=== PATIENT | female | born 1985 | race Caucasian/White ===

== ENCOUNTER 2023-07-28 13:42 | Emergency (ER) | payer OTHER, SELFPAY ==
[2023-07-28 13:45] VITALS: BP 146/103
--- NOTE | 2023-07-28 14:31 | ED.GENMED ---
History of Present Illness
<Stephanie Shelton PA-C - Last Filed: 07/28/23 18:11>
General
Chief Complaint: Musculo-Skeletal Complaint
Source: patient
Exam Limitations: none
Time Seen by Provider: 07/28/23 14:29
Nursing documentation reviewed up to this point in time: agreed with
Travel History
Have you had any contact with someone who has COVID-19?: No
Do you have any symptoms of coronavirus? Fever > 100 degrees, chills, cough, shortness of breath, sore throat, loss of taste or smell, muscle aches, or headache?: No
History of Present Illness
History of Present Illness:
37-year-old female presenting to the emergency department today with left lateral ankle pain and right knee pain following a fall. Patient states that she was outside today taking her nieces/nephews to the park when she was walking on the driveway,
stepped on a rock, twisted her ankle, and fell onto her right side. Patient currently endorses a burning pain at the site of her right knee abrasion and also notes left ankle pain. Patient states that she was able to get up after the fall and can
walk but cannot bear weight without a lot of pain and cannot put her foot flat on the ground. Patient denies any head strike, patient is not on any blood thinners, patient denies any abdominal pain, hip pain. Patient denies any dizziness,
lightheadedness, or chest pain prior to the fall.
Past History
<Stephanie Shelton PA-C - Last Filed: 07/28/23 18:11>
Past History
ED Past Medical History: None
ED Past Surgical History: Other (T&A)
Social History
Tobacco: Non-smoker
Drug: None
Personal:
Living: with family
Employment: Employed
Family History
Family History: Other
Review of Systems
<Stephanie Shelton PA-C - Last Filed: 07/28/23 18:11>
Review of Systems
All Other Systems: ROS reviewed and negative except as documented in HPI and ROS
Phy Exam
<Stephanie Shelton PA-C - Last Filed: 07/28/23 18:11>
Physical Exam
Physical Exam:
General: Patient is well appearing and in no acute distress; non-toxic
Skin: Warm and dry. There are 2 linear abrasions over the anterior surface of the right knee. No active bleeding.
Head: Normocephalic, atraumatic
Eyes: Sclera non-icteric. EOMs intact. PERRLA.
Cardiac: Regular rate
Pulm: Normal respiratory effort
Abdomen: No abdominal tenderness
Musculoskeletal: right knee: Abrasions over the surface of the right knee. Negative Albert's testing, negative Stefano's. No knee swelling. No point tenderness. No pain with full passive range of motion of the knee. left ankle: Patient has
lateral ankle pain with varus stress and lateral ankle swelling but no instability of the ankle, negative anterior drawer.
Neuro: CN II-XII intact, no focal neurologic deficits.
Psychiatric: Appropriate mood and affect.
Course
<Stephanie Shelton PA-C - Last Filed: 07/28/23 18:11>
Orders/Labs/Results
Orders:
Orders
07/28/23 13:52
CR Ankle - Left Min 3 Views Urgent
Comment:
Reason For Exam: injury/pain
CR Knee- Right 4 Or More View* Urgent
Comment:
Reason For Exam: injury/pain
07/28/23 14:43
Ibuprofen [Motrin] 600 mg PO NOW STA
07/28/23 14:49
Ibuprofen [Motrin] 600 mg .ROUTE .STK-MED ONE
07/28/23 15:20
Air Splint Left-Treatment ONCE
Crutches-Treatment ONCE
07/28/23 15:24
Tetanus/Diphth/Acelpertussis [Adacel] 0.5 ml IM .ONCE ONE
07/28/23 15:37
boot [Ortho Boot Right- Treatment] ONCE
Short or tall?: Short
Vital Signs
Initial and Last Documented VS:
Initial Vital Signs
Temp Pulse Resp BP Pulse Ox
36.4 C 100 18 146/103 98
07/28/23 13:45 07/28/23 13:45 07/28/23 13:45 07/28/23 13:45 07/28/23 13:45
Last Documented Vital Signs
Temp Pulse Resp BP Pulse Ox
36.7 C 86 16 136/71 99
07/28/23 15:45 07/28/23 15:45 07/28/23 15:45 07/28/23 15:45 07/28/23 15:45
<Luis Baca MD - Last Filed: 07/28/23 21:40>
Orders/Labs/Results
Orders:
Orders
07/28/23 13:52
CR Ankle - Left Min 3 Views Urgent
Comment:
Reason For Exam: injury/pain
CR Knee- Right 4 Or More View* Urgent
Comment:
Reason For Exam: injury/pain
07/28/23 14:43
Ibuprofen [Motrin] 600 mg PO NOW STA
07/28/23 14:49
Ibuprofen [Motrin] 600 mg .ROUTE .STK-MED ONE
07/28/23 15:20
Air Splint Left-Treatment ONCE
Crutches-Treatment ONCE
07/28/23 15:24
Tetanus/Diphth/Acelpertussis [Adacel] 0.5 ml IM .ONCE ONE
07/28/23 15:37
boot [Ortho Boot Right- Treatment] ONCE
Short or tall?: Short
Vital Signs
Initial and Last Documented VS:
Initial Vital Signs
Temp Pulse Resp BP Pulse Ox
36.4 C 100 18 146/103 98
07/28/23 13:45 07/28/23 13:45 07/28/23 13:45 07/28/23 13:45 07/28/23 13:45
Last Documented Vital Signs
Temp Pulse Resp BP Pulse Ox
36.7 C 86 16 136/71 99
07/28/23 15:45 07/28/23 15:45 07/28/23 15:45 07/28/23 15:45 07/28/23 15:45
<Stephanie Shelton PA-C - Last Filed: 07/28/23 18:11>
MDM/Problems Addressed
Differential Diagnosis Includes:
Anterior talofibular ligament sprain, ankle fracture, metatarsal fracture, collateral ligament tear, musculoskeletal sprain/strain
MDM/Problems Addressed:
Right knee abrasion, left ankle pain
Chronic conditions affecting care:
Tobacco abuse
Acute Exacerbation and/or Progression of Chronic Illness:
n/a
<Stephanie Shelton PA-C - Last Filed: 07/28/23 18:11>
*Pulse Oximetry
Patient hypoxic: no
*Critical Care Note
Total Time (30-74mins, 75-104mins- exclusive of procedures): Not Applicable
Data Reviewed
Review of Other/Old Records Reveals: Records (Reviewed ER physician documentation from 04/15/2019, 01/10/2016) and Discharge Summary (no discharge summaries in [facility] to review)
<Stephanie Shelton PA-C - Last Filed: 07/28/23 18:11>
Patient Management
Escalation/DeEscalation of care consider admission/obs:
37-year-old female presenting emergency department today after her twisting her ankle and falling on her right side. Her left ankle joint she does have some lateral ankle pain and swelling and pain with varus stress but her ankle is stable and she
is negative anterior drawer testing. Her x-ray demonstrates no acute fracture or dislocation. Her right knee abrasion was thoroughly cleaned with saline, antibiotic ointment applied, and the wound was dressed. Considering patient is a lot of pain
with weightbearing, patient was placed in a boot and given crutches to help support this. Patient stable for discharge at this point, told her to follow-up with her orthopedist should her symptoms not resolve within 2 to 3 weeks. Patient aware of
return precautions. Patient in agreement with plan.
ED Attending Note
<Stephanie Shelton PA-C - Last Filed: 07/28/23 18:11>
-
Portions of this chart may have been created with voice recognition software.� Occasional wrong word or��sound alike� substitutions may have occurred due to the inherent limitations of voice recognition software.
<Luis Baca MD - Last Filed: 07/28/23 21:40>
ED Attending Note
Patient seen and examined by attending physician: Yes
ED Attending Note:
HPI: 37-year-old female presents to the emergency room for evaluation after trip and fall. Patient stepped on a rock and suffered inversion injury of the left ankle and then fell onto her right knee. Sustained abrasion of the right knee. No head
trauma or other injuries. Unsure of last tetanus.
ROS: Positive for left ankle pain, right knee pain
Physical exam:
General: Well appearing and non-toxic
HEENT: protecting airway
Neck: appears supple
CV: No evidence of cyanosis
Resp: No accessory muscle use
Abd: Non-distended
Extremities: Patient has very mild tenderness over the lateral malleolus of the left ankle, no tenderness of medial malleolus, no midfoot tenderness, no tenderness along the fifth metatarsal; she has no tenderness to the left knee; she has no
effusion of the right knee, full range of motion of the right knee, minor abrasion but no reproducible bony tenderness in the right knee; rest extremities atraumatic
Neuro: Alert
Psych: Normal affect
Skin: Abrasion to the right knee
Differential diagnosis: Sprain, fracture, contusion
Medical decision makin-year-old female presents after trip and fall with injuries as above. Updated tetanus. X-rays reviewed show no acute fractures. Advised ice, rest, elevation. Follow-up with PCP. Suspect right knee contusion and
abrasion and left ankle sprain.
Chronic conditions affecting care: N/A
Acute exacerbation or progression of chronic illness: Hypertensive
History source: Patient
Data reviewed: N/A
Medications/testing considered: N/A
Social determinants of health: N/A
Discussion with other providers: N/A
Discharge Plan
Departure
Patient Disposition: Home (Routine Discharge)
Date of Disposition: 07/28/23
Time of Disposition: 15:38
Patient with high blood pressure during this ER visit?: Yes
Condition: Good
Discharge Problem:
Sprain of ankle, left, Abrasion of right knee
Instructions: Ankle Sprain (DC), How to Use Crutches, BLOOD PRESSURE
Prescriptions:
No Action
No Current Medications
0
Referrals:
Shireen Palacio MD [Family Provider] -
Activity Restrictions/Additional Instructions:
Please change her dressing on your right knee abrasion once daily. Please return the emergency department should you develop erythema surrounding the wound, fevers or chills, purulent drainage from the wound, inability bear weight, or any other
concerning signs or symptoms.
Should you have persistent symptoms after 2 to 3 weeks, please follow-up with your orthopedist for reevaluation. Weight bear as tolerated.
Please return for any concerns.
Please follow up with your primary care provider.
Interventions
Interventions:
*Risk Screen - Suicide Last Done: 07/28/23 13:56
*General Assessment Last Done: 07/28/23 14:30
*Neglect/Abuse Screening Last Done: 07/28/23 13:56
ED- Fall Risk Assessment Last Done: 07/28/23 15:45
*ED COVID-19 Vaccine History Last Done: 07/28/23 13:45
*Nursing Disposition Last Done: 07/28/23 15:55
ED-Musculoskeletal Assessment Last Done: 07/28/23 15:45
Discharge Date and Time
Discharge Date/Time: 07/28/23 15:56
Print Language: PARAGUAYAN
[2023-07-28] MEDS: MOTRIN 600 MG PO (14:51)
[2023-07-28 15:45] VITALS: BP 136/71; BMI 32.5
[2023-07-28] MEDS: ADACEL 0.5 ML IM (15:50)
== END 2023-07-28 15:56 | disposition home or self-care (01) ==
LOC: EMR 13:42
PROVIDERS: EMERGENCY PHYSICIAN Emergency Medicine; FAMILY PHYSICIAN Family Medicine
DX: S83.91XA Sprain of unspecified site of right knee, initial encounter (principal); S93.402A Sprain of unspecified ligament of left ankle, initial encounter; S80.211A Abrasion, right knee, initial encounter; W01.0XXA Fall on same level from slipping, tripping and stumbling without subsequent striking against object, initial encounter; F17.200 Nicotine dependence, unspecified, uncomplicated; R03.0 Elevated blood-pressure reading, without diagnosis of hypertension; Z23 Encounter for immunization
CPT/HCPCS: 99284; 90471; 73564; 73610; 90715